=== PATIENT | male | born 1960 | race American Indian/Alaskan Native ===

== ENCOUNTER 2020-02-20 04:37 | Emergency (ER) | payer OTHER ==
[2020-02-20 05:00] VITALS: BP 136/87
== END 2020-02-20 08:00 | disposition left against medical advice (07) ==
LOC: ED 04:37
DX: M54.6 Pain in thoracic spine (principal); G89.29 Other chronic pain; Z53.21 Procedure and treatment not carried out due to patient leaving prior to being seen by health care provider

== ENCOUNTER 2021-11-01 20:54 | Emergency (ER) | payer OTHER ==
[2021-11-01] MEDS ORDERED: SODIUM CHLORIDE 0.9% 1000 ML 1,000 ML IV ONE (22:59)
[2021-11-01] MEDS ORDERED: MORPHINE 4 MG/1 ML INJ IV ONE (22:59)
[2021-11-01] MEDS ORDERED: ONDANSETRON 4 MG/2 ML INJ IV ONE (22:59)
--- NOTE | 2021-11-01 23:10 | Emergency Department Report ---
ED Abdominal Pain HPI - General Chief Complaint: Abdominal Pain Stated Complaint: ABD PAIN Time Seen by Provider: 11/01/21 22:56 Source: patient, EMS Mode of arrival: Stretcher Limitations: No Limitations - History of Present Illness Initial Comments: Patient is 61 years old male with no significant past medical history. Patient presented to the ER complaining of lower abdominal pain that started this evening. Patient describes his pain as sharp and cramping in nature. He denied any nausea or vomiting. No diarrhea. Patient also denied any fever or chills. No chest pain or shortness of breath. MD Complaint: abdominal pain -: This evening Location: suprapubic Radiation: none Migration to: no migration Severity: moderate - Related Data Allergies Allergy/AdvReac Type Severity Reaction Status Date / Time No Known Allergies Allergy Unverified 02/20/20 05:00 ED Review of Systems ROS: Stated complaint: ABD PAIN Other details as noted in HPI Comment: All other systems reviewed and negative Constitutional: denies: chills, fever Respiratory: denies: cough Cardiovascular: denies: chest pain, palpitations Gastrointestinal: abdominal pain, nausea. denies: vomiting, diarrhea, con stipation, hematemesis, melena, hematochezia Genitourinary: denies: urgency, frequency, testicular pain Musculoskeletal: back pain Neurological: denies: headache, weakness, numbness, paresthesias, confusion, abnormal gait ED Past Medical Hx - Past Medical History Previous Medical History?: Yes Hx Psychiatric Treatment: Yes (PTSD, Anxiety, Depression) Additional medical history: Prostate, Herniated Disc, TBI, Chronic Back pain - Surgical History Past Surgical History?: No - Social History Smoking Status: Current Every Day Smoker Substance Use Type: None ED Physical Exam - General Limitations: No Limitations General appearance: alert, in no apparent distress - Head Head exam: Present: atraumatic, normocephalic, normal inspection - Eye Eye exam: Present: normal appearance - ENT ENT exam: Present: normal exam, normal orophraynx, mucous membranes moist - Neck Neck exam: Present: normal inspection, full ROM. Absent: tenderness, meningismus - Respiratory Respiratory exam: Present: normal lung sounds bilaterally - Cardiovascular Cardiovascular Exam: Present: regular rate, normal rhythm, normal heart sounds - GI/Abdominal GI/Abdominal exam: Present: soft, normal bowel sounds. Absent: distended, tenderness, guarding, rebound, rigid, organomegaly, mass, bruit, pulsatile mass, hernia - Extremities Exam Extremities exam: Present: normal inspection, full ROM, normal capillary refill. Absent: tenderness, pedal edema, joint swelling, calf tenderness - Back Exam Back exam: Present: normal inspection, full ROM. Absent: CVA tenderness (R), CVA tenderness (L) - Neurological Exam Neurological exam: Present: alert, oriented X3, CN II-XII intact, normal gait, reflexes normal. Absent: motor sensory deficit - Psychiatric Psychiatric exam: Present: normal mood - Skin Skin exam: Present: warm, intact, normal color ED Course Vital Signs 11/01/21 11/02/21 22:37 00:21 Temperature 98 F Pulse Rate 82 Respiratory 18 Rate Blood Pressure 156/88 O2 Sat by Pulse 98 96 Oximetry ED Medical Decision Making - Lab Data Result diagrams: 11/01/21 23:00 11/01/21 23:00 - EKG Data -: EKG Interpreted by Ak EKG shows normal: sinus rhythm Rate: normal - EKG Data Interpretation: no acute changes - Radiology Data Radiology results: report reviewed - Medical Decision Making Patient is 61 years old male with no significant past medical history. Patient presented to the ER complaining of lower abdominal pain that started this evening. Patient describes his pain as sharp and cramping in nature. He denied any nausea or vomiting. No diarrhea. Patient also denied any fever or chills. No chest pain or shortness of breath. Patient received morphine, Zofran and Protonix. Patient stated that he is feeling much better. Labs reviewed and is unremarkable except for positive UDS for cocaine. CT abdomen and pelvis with IV contrast is unremarkable. Patient given prescription for Bentyl and Zofran and advised to follow-up with his primary doctor in the next 2 to 3 days and to return to the ER if he develop any symptoms. Critical care attestation.: If time is entered above; I have spent that time in minutes in the direct care of this critically ill patient, excluding procedure time. ED Disposition Clinical Impression: Acute abdominal pain, Cocaine abuse Disposition: HOME / SELF CARE / HOMELESS Is pt being admited?: No Condition: Stable Instructions: Abdominal Pain, Adult, [id number], Stimulant Use Disorder- Cocaine Referrals: SHARLENE IVY MD [Primary Care Provider] - 3-5 Days
[2021-11-01 23:11] LABS: Basophils % (Auto) 0.3 % (0.0-1.8); Eosinophils % (Auto) 0.1 % (0.0-4.3); Hematocrit 48.6 % (35.5-45.6); Hemoglobin 15.8 gm/dl (11.8-15.2); Lymphocytes # (Auto) 0.2 K/mm3 (1.2-5.4); Lymphocytes % (Auto) 3.2 % (13.4-35.0); Mean Corpuscular HGB Conc 33 % (32-34); Mean Corpuscular Volume 93 fl (84-94); Monocytes # (Auto) 0.6 K/mm3 (0.0-0.8); Monocytes % (Auto) 8.1 % (0.0-7.3); Platelet Count 171 K/mm3 (140-440); Red Blood Count 5.22 M/mm3 (3.65-5.03); Red Cell Distribution Width 13.9 % (13.2-15.2)
[2021-11-01 23:28] LABS: Alanine Aminotransferase 11 units/L (7-56); Albumin 4.5 g/dL (3.9-5); BUN/Creatinine Ratio 8; Blood Urea Nitrogen 9 mg/dL (9-20); Calcium 9.5 mg/dL (8.4-10.2); Hemolysis Index 16
--- NOTE | 2021-11-02 00:59 | Cat Scan Report ---
CT ABDOMEN AND PELVIS WITH CONTRAST INDICATION / CLINICAL INFORMATION: abdominal pain. TECHNIQUE: Axial CT images were obtained through the abdomen and pelvis after IV contrast. All CT sc ans at this location are performed using CT dose reduction for ALARA by means of automated exposure c ontrol. COMPARISON: None available. FINDINGS: LOWER CHEST: No significant abnormality of the imaged chest. LIVER: No focal lesion. No acute findings. GALLBLADDER / BILE DUCTS: No significant abnormality. Biliary ducts grossly unremarkable. SPLEEN: No significant abnormality. PANCREAS: No significant abnormality. ADRENALS: No significant abnormality. KIDNEYS/URETERS: Subcentimeter hypodense lesion mid to lower left kidney thought to reflect complex c yst, too small to further characterize. STOMACH / DUODENUM / SMALL BOWEL: The stomach, duodenum, and small bowel demonstrate no significant a bnormality. No specific abnormality of the mesentery demonstrated. COLON: No significant abnormality. APPENDIX: Not identified. PERITONEUM: No free air or free fluid are present within the abdomen or pelvis. LYMPH NODES: No significant adenopathy. AORTA / ARTERIES: No significant abnormality. IVC / VEINS: No significant abnormality. URINARY BLADDER: No significant abnormality. REPRODUCTIVE ORGANS: Borderline enlargement of the prostate. ADDITIONAL ABDOMINAL/PELVIC FINDINGS: None. SKELETAL SYSTEM: No significant abnormality. IMPRESSION: 1. No imaging findings to suggest etiology of the provided symptoms. Nonacute findings as detailed. Signer Name: Marco Chan II, MD Signed: 11/02/2021 12:58 AM Workstation Name: [id number]
[2021-11-02 02:24] LABS: Bilirubin,Urine NEG (Negative); Blood,Urine NEG (Negative); Color,Urine Straw (Yellow); Mucus,Urine FEW /HPF; Protein,Urine <15 mg/dL mg/dL (Negative); Urobilinogen,Urine < 2.0 mg/dL (<2.0); WBC,Urine < 1.0 /HPF (0.0-6.0)
[2021-11-02 02:31] LABS: Amphetamine Screen,Urine PRESUMPTIVE NEGATIVE; Benzodiazepines Screen,Urine PRESUMPTIVE NEGATIVE; Cannabinoid Screen,Urine PRESUMPTIVE POSITIVE; Cocaine Screen,Urine PRESUMPTIVE POSITIVE; Methadone Screen,Urine PRESUMPTIVE NEGATIVE; Opiate Screen,Urine PRESUMPTIVE NEGATIVE
[2021-11-02 04:30] VITALS: BP 144/78
== END 2021-11-02 04:50 | disposition home or self-care (01) ==
LOC: ED 20:54
DX: F14.10 Cocaine abuse, uncomplicated (principal); R10.2 Pelvic and perineal pain; F43.10 Post-traumatic stress disorder, unspecified; F41.9 Anxiety disorder, unspecified; F32.9 Major depressive disorder, single episode, unspecified; G89.29 Other chronic pain; M54.9 Dorsalgia, unspecified; F17.290 Nicotine dependence, other tobacco product, uncomplicated
CPT/HCPCS: 36415; 74177; 80053; 80307; 81001; 83690; 85025; 96361; 96374; 96375; 99284; J2270; J2405; J7030; Q9967; 80320; G0480